=== PATIENT | female | born 1965 | race Caucasian/White ===

== ENCOUNTER → 2020-04-01 16:28 | Outpatient (CLI) | payer OTHER, SELFPAY ==
[2020-04-01 17:18] LABS: Add Manual Diff / Slide Review NO; Basophils Absolute Auto 100 /uL (0-100); Basophils Percent Auto 0.7 % (0-2); Eosinophils Absolute Auto 200 /uL (0-450); Eosinophils Percent Auto 2.3 % (2-4); Hematocrit 34.2 % (36-46); Hemoglobin 11.8 g/dL (12.0-16.0); Lymphocytes Absolute Auto 2900 /uL (1100-4500); Mean Corpuscular HGB Conc 34.6 % (30-36); Mean Corpuscular Hemoglobin 31.9 PG (26-34); Mean Corpuscular Volume 92.2 fL (80-100); Monocytes Absolute Auto 600 /uL (0-900); Monocytes Percent Auto 7.4 % (3-14); Neutrophils Absolute Auto 4100 /uL (1500-7000); Neutrophils Percent Auto 52.6 % (50-75); Platelet Count 203 X10^3/uL (150-400); Red Blood Cell Count 3.71 X10^6/uL (4.0-5.2); Red Cell Distribution Width 13.6 % (11.6-14.8); White Blood Cell Count 7.7 X10^3/uL (4.5-11.0)
[2020-04-01 17:23] LABS: Hemoglobin A1C% w Est Avg Glu 5.4 % (4.0-6.0)
[2020-04-01 17:40] LABS: Alanine Aminotransferase 15 IU/L (<35); Albumin 4.4 g/dL (3.5-5.0); Albumin Globulin Ratio 1.6 (1.0-2.8); Alkaline Phosphatase 51 U/L (38-126); Aspartate Aminotransferase 28 IU/L (14-36); BUN Creatinine Ratio 23.6 (6-22); Bilirubin Total 0.4 mg/dL (0.2-1.3); Blood Urea Nitrogen 21 mg/dL (7-17); Calcium 9.5 mg/dL (8.4-10.2); Carbon Dioxide 30 mmol/L (22-32); Chloride 103 mmol/L (98-107); Estimated Glomerular Filt Rate > 60.0 mL/min (>60); Globulin 2.8 g/dL (1.7-4.1); Glucose 118 mg/dL (70-100); HEMOLYSIS < 15 (0-50); Potassium 3.7 mmol/L (3.4-5.1); Sodium 139 mmol/L (137-145); Total Protein 7.2 g/dL (6.3-8.2)
[2020-04-01 18:10] LABS: Thyroid Stimulating Hormone 2.19 uIU/mL (0.47-4.68)
[2020-04-02 09:48] LABS: Cholesterol 194 mg/dL (140-199); HDL Cholesterol 48 mg/dL (40-60); LDL Cholesterol Calculated 109 mg/dL (<100); Triglycerides 184 mg/dL (35-150)
[2020-04-06 21:07] LABS: Metanephrine,Plasma 10 pg/mL (0-62)
== END ==
DX: Z13.220 Encounter for screening for lipoid disorders (principal); Z13.1 Encounter for screening for diabetes mellitus; R23.2 Flushing
CPT/HCPCS: 36415; 80053; 80061; 82384; 83036; 83835; 84443; 85025

== ENCOUNTER → 2020-04-03 08:10 | Outpatient (CLI) | payer OTHER, SELFPAY ==
[2020-04-08 16:14] LABS: Creatinine, 24 Urine 904 mg/24 hr (800-1800); Creatinine,Urine 58.3 mg/dL (Not Estab.); Dopamine, Ur 24hr 183 ug/24 hr (0-510); Epinephrine, U 24hr 8 ug/24 hr (0-20); Metanephrine, Urine 90 ug/L (Undefined); Norepinephrine Ur 24hr 22 ug/24 hr (0-135); Normetanephrine Ur 24hr 246 ug/24 hr (82-500); Normetanephrine, Ur 159 ug/L (Undefined)
== END ==
PROVIDERS: Referring Provider Internal Medicine; Visit Provider Internal Medicine
DX: Z13.1 Encounter for screening for diabetes mellitus (principal); Z13.220 Encounter for screening for lipoid disorders; R23.2 Flushing
CPT/HCPCS: 82384; 82570; 83835

== ENCOUNTER 2020-04-30 11:27 | Emergency (ER) | payer OTHER, SELFPAY ==
[2020-04-30 11:38] VITALS: BP 174/70; PULSE 71; RESP 16; TEMP 36.7; O2SAT 100; BMI 27.8
--- NOTE | 2020-04-30 11:48 | ED_ITS ---
HPI - Headache <SIRI Abdullahi - Last Filed: 04/30/20 13:47> General Chief Complaint: Headache Stated Complaint: Headaches and Diarhea Time Seen by Provider: 04/30/20 11:29 Mode of arrival: Family Vehicle Limitations: no limitations History of Present Illness HPI Narrative: 54yo female presents to the emergency department complaining of a headache. She states she had a headache 2 weeks ago for approximately a week, it resolved after a week. Following a week of relief, her headache returned on Sunday. She states she was seen in the walk-in clinic yesterday and was given Toradol which helped relieve the pain. She has taken Tylenol which also does the pain but does not completely relieve it. Patient states the pain is located on the right occipital area of her head. She states it is a dull aching 6/10. Patient denies any aggravating symptoms. She states the headache came on gradually and is usually worse in the morning when she is fasting. She has done intermittent fasting since November, she is unsure if the fasting is related to her headaches. Patient denies any history of headaches or migraines. She denies taking any blood thinners. Patient reports she has started to take low-dose estrogen approximately 3 weeks ago for menopausal hot flashes. Patient reports yesterday she had an episode of diarrhea which is unusual for her, she is usually constipated. Patient denies any other symptoms such as chest pain, shortness of breath, dizziness, abdominal pain, vomiting, light sensitivity, blurry vision, double vision, neck pain, or any other concerns. Related Data Home Medications Medication Instructions Recorded Confirmed docusate sodium PO 03/29/19 04/29/20 conjugated estrogens 0.3 mg tablet 0.3 mg PO DAILY 04/29/20 04/29/20 polyethylene glycol 3350 17 17 gram PO DAILY 04/29/20 04/29/20 gram/dose oral powder progesterone micronized 100 mg 100 mg PO QAM 04/29/20 04/29/20 capsule Previous Rx's Medication Instructions Recorded metoclopramide HCl [Reglan] 10 mg PO Q6H PRN #7 tab 04/30/20 Allergies Allergy/AdvReac Type Severity Reaction Status Date / Time No Known Drug Allergies Allergy Verified 04/30/20 11:41 Review of Systems <SIRI Abdullahi - Last Filed: 04/30/20 13:47> Review of Systems Narrative: REVIEW OF SYSTEMS: GENERAL: Denies fever or chills. HENT: Reports headache, see HPI. EYES: No loss of vision, double vision, eye pain, or irritation. CARDIOVASCULAR: No chest pain or syncope. RESPIRATORY: No shortness of breath or cough. GASTROINTESTINAL: Reports episode of diarrhea, see HPI. GENITOURINARY: No flank pain or dysuria. MUSCULOSKELETAL: No pain, weakness, or deformities. INTEGUMENTARY: No rash, lesions, or pruritus. NEURO: No numbness, tingling, memory loss, or confusion. PSYCH: No behavior or mood changes. Patient History <SIRI Abdullahi - Last Filed: 04/30/20 13:47> Medical History No significant medical problems (Acute) Social History Smoking Status: Never smoker Smoking Status: Never smoker alcohol intake frequency: 0-2 drinks per day Substance Use Type: does not use Exam <SIRI Abdullahi - Last Filed: 04/30/20 13:47> Initial Vital Signs Initial Vital Signs: Vital Signs Temperature 98.1 F 04/30/20 11:38 Pulse Rate 71 04/30/20 11:38 Respiratory Rate 16 04/30/20 11:38 Blood Pressure 174/70 H 04/30/20 11:38 Pulse Oximetry 100 04/30/20 11:38 PHYSICAL EXAMINATION: GENERAL: Well groomed, alert, and cooperative. Answers questions promptly and appropriately. Vital signs noted. HENT: Normocephalic. Ear canals patent. Oral mucosa is pink and moist. EYES: PERRLA, EOMIs, conjunctiva pink, sclera white, no periorbital swelling. NECK: Full ROM, no midline or spinal tenderness. CARDIOVASCULAR: S1 and S2 sounds normal. Regular rate and rhythm, no murmurs, clicks, or bruits. RESPIRATORY: Normal respiratory rate, trachea midline, airway patent. No stridor, nasal flaring or accessory muscle use. Lungs are clear in all gonzalez without wheeze, rhonchi, or crackles. MUSCULOSKELETAL: Normal gait and coordination. Equal tone and mass bilaterally. Equal strength bilaterally to upper and lower extremities. No spinal tenderness. EXTREMITIES: CMS intact. Moves all extremities. SKIN: Warm, dry, soft, appropriate color for ethnicity. No lesions, rashes, or wounds to visualized areas. NEURO: Alert and Oriented X 3. GCS: 15. Good coordination. No ataxia, or sensory deficits, or cognitive issues. No light sensitivity observed. Cranial Nerves: II: Visual gonzalez grossly intact. III & IV & : EOMIs V: Able to open and close jaw. VII: Facial movements symetrical. Able to close eyelids tightly. VIII: Hearing grossly intact, adequate balance. X: Uvula pronation intact. XI: Patient is able to shrug shoulders. XII: Patient is able to stick out tongue and move it side to side. PSYCH: Appropriate affect and mood. <Claudia Ren MD - Last Filed: 04/30/20 17:50> Initial Vital Signs Initial Vital Signs: Vital Signs Temperature 98.1 F 04/30/20 11:38 Pulse Rate 71 04/30/20 11:38 Respiratory Rate 16 04/30/20 11:38 Blood Pressure 174/70 H 04/30/20 11:38 Pulse Oximetry 100 04/30/20 11:38 Course <SIRI Abdullahi - Last Filed: 04/30/20 13:47> Course Course Narrative: 1241: Patient reported feeling much better. Patient states headache has almost completely resolved, reports pain as a 1/10. Updated on laboratory and CT findings. Orders Ordered: ED Orders 04/30/20 11:47 Complete Blood Count AUTO DIFF Stat Comprehensive Metabolic Panel Stat 04/30/20 12:00 CT head/brain wo con Stat Discontinued Medications Diphenhydramine HCl (Benadryl) 25 mg IV NOW ONE Stop: 04/30/20 11:46 Last Admin: 04/30/20 12:15 Dose: 25 mg Documented by: RJ Sodium Chloride (Normal Saline 0.9%) 1,000 mls @ 1,000 mls/hr IV BOLUS ONE Stop: 04/30/20 12:44 Last Infusion: 04/30/20 13:30 Dose: 0 mls/hr Documented by: Admin: 04/30/20 12:14 Dose: 1,000 mls/hr Documented by: RJ Ketorolac Tromethamine (Toradol) 30 mg IV NOW ONE Stop: 04/30/20 11:46 Last Admin: 04/30/20 12:17 Dose: 30 mg Documented by: RJ Metoclopramide HCl (Reglan) 10 mg IV NOW ONE Stop: 04/30/20 11:46 Last Admin: 04/30/20 12:20 Dose: 10 mg Documented by: RJ Consultations Consultation #1: Patient staffed with Dr. Ren, discussed symptoms, tests, test results, and plan of care. Vital Signs Vital signs: Vital Signs - 8 hr 04/30/20 11:38 04/30/20 13:31 Temperature 98.1 F Pulse Rate 71 54 L Respiratory Rate 16 18 Blood Pressure 174/70 H 121/58 L Pulse Oximetry 100 98 <Claudia Ren MD - Last Filed: 04/30/20 17:50> Orders Ordered: ED Orders 04/30/20 11:47 Complete Blood Count AUTO DIFF Stat Comprehensive Metabolic Panel Stat 04/30/20 12:00 CT head/brain wo con Stat Discontinued Medications Diphenhydramine HCl (Benadryl) 25 mg IV NOW ONE Stop: 04/30/20 11:46 Last Admin: 04/30/20 12:15 Dose: 25 mg Documented by: RJ Sodium Chloride (Normal Saline 0.9%) 1,000 mls @ 1,000 mls/hr IV BOLUS ONE Stop: 04/30/20 12:44 Last Infusion: 04/30/20 13:30 Dose: 0 mls/hr Documented by: Admin: 04/30/20 12:14 Dose: 1,000 mls/hr Documented by: RJ Ketorolac Tromethamine (Toradol) 30 mg IV NOW ONE Stop: 04/30/20 11:46 Last Admin: 04/30/20 12:17 Dose: 30 mg Documented by: RJ Metoclopramide HCl (Reglan) 10 mg IV NOW ONE Stop: 04/30/20 11:46 Last Admin: 04/30/20 12:20 Dose: 10 mg Documented by: RJ Vital Signs Vital signs: Vital Signs - 8 hr 04/30/20 11:38 04/30/20 13:31 Temperature 98.1 F Pulse Rate 71 54 L Respiratory Rate 16 18 Blood Pressure 174/70 H 121/58 L Pulse Oximetry 100 98 MDM - Headache <ENRRIQUE AbdullahiP - Last Filed: 04/30/20 13:47> Medical Records Attestation: I reviewed the patient's medical records. Lab Data Attestation: I reviewed the patient's lab results. Result diagrams: 04/30/20 11:47 04/30/20 11:47 Labs: Lab Results 04/30/20 04/30/20 Range/Units 11:47 11:47 WBC 6.9 (4.5-11.0) X10^3/uL RBC 3.73 L (4.0-5.2) X10^6/uL Hgb 11.8 L (12.0-16.0) g/dL Hct 34.6 L (36-46) % MCV 92.7 (80-100) fL MCH 31.8 (26-34) PG MCHC 34.3 (30-36) % RDW 13.6 (11.6-14.8) % Plt Count 202 (150-400) X10^3/uL Neut % (Auto) 55.4 (50-75) % Lymph % (Auto) 35.8 (25-40) % [place] % (Auto) 6.5 (3-14) % Eos % (Auto) 1.5 L (2-4) % Baso % (Auto) 0.8 (0-2) % Neut # (Auto) 3800 (5811-7919) /uL Lymph # (Auto) 2500 (4300-1673) /uL [place] # (Auto) 400 (0-900) /uL Eos # (Auto) 100 (0-450) /uL Baso # (Auto) 100 (0-100) /uL Sodium 140 (137-145) mmol/L Potassium 4.2 (3.4-5.1) mmol/L Chloride 107 (98-107) mmol/L Carbon Dioxide 25 (22-32) mmol/L BUN 13 (7-17) mg/dL Creatinine 0.78 (0.52-1.04) mg/dL Estimated GFR > 60.0 (>60) mL/min BUN/Creatinine Ratio 16.7 (6-22) Glucose 79 (70-100) mg/dL Calcium 9.6 (8.4-10.2) mg/dL Total Bilirubin 0.3 (0.2-1.3) mg/dL AST 35 (14-36) IU/L ALT 20 (<35) IU/L Alkaline Phosphatase 52 (38-126) U/L Total Protein 7.0 (6.3-8.2) g/dL Albumin 4.6 (3.5-5.0) g/dL Globulin 2.4 (1.7-4.1) g/dL Albumin/Globulin Ratio 1.9 (1.0-2.8) Imaging Data CT scan - head: Radiologist's Impression: [address] [address] [address] Scan Report Signed Patient: Corie Augustin AMR#: [id number] : 1965Acct:[id number] Age/Sex: 54 / FDate of Service: 04/30/20 Loc: ED Accession Number: [id number] Procedure: CT head/brain wo con Ordering Provider: Nely Gutierrez PROCEDURE: CT HEAD/BRAIN WO CON INDICATIONS: Headache x 2 weeks, started taking estrogen TECHNIQUE: Noncontrast 4.5 mm thick angled axial sections acquired from the foramen magnum to the vertex, with coronal and sagittal reformats. For radiation dose reduction, the following was used: automated exposure control, adjustment of mA and/or kV according to patient size. COMPARISON: None. FINDINGS: Image quality: Excellent. CSF spaces: Basal cisterns are patent. No extra-axial fluid collections. Ventricles are normal in size and shape. Brain: No midline shift. No intracranial masses or hemorrhage. Vidales-white matter interface is normal. Skull and face: Calvarium and visualized facial bones are intact, without suspicious lesions. Sinuses: Visualized sinuses and mastoids are clear. IMPRESSION: No acute intracranial hemorrhage is seen. No acute intracranial process is seen. Dictated by: Job Hannah M.D. on 04/30/2020 at 11:10 Approved by: Job Hannah M.D. on 04/30/2020 at 11:15 MDM Narrative Medical decision making narrative: 54-year-old female presenting to the emergency department for new onset headaches the past 3 weeks. I am unsure the exact cause of the headache however, her intermittent fasting and new low-dose estrogen pills that she started 3 weeks ago may contribute to her symptoms. Less likely stroke due to lack of neurological symptoms, lack of risk factors, CT without findings of bleeding. Less likely to tumor as head CT and neuro exam is non-remarkable. Additionally, patient's headache significantly improved with fluids, Toradol, Reglan, and Benadryl. Discussed with patient importance of follow-up especially given the recent addition of estrogen pills that she has been taking. We discussed keeping a headache diary and avoiding intermittent fasting for the next few days to see if symptoms are alleviated. Strict ED return precautions were given for new or worsening symptoms. Patient agreed to plan of care verbalized understanding. <Claudia Ren MD - Last Filed: 04/30/20 17:50> Lab Data Labs: Lab Results 04/30/20 04/30/20 Range/Units 11:47 11:47 WBC 6.9 (4.5-11.0) X10^3/uL RBC 3.73 L (4.0-5.2) X10^6/uL Hgb 11.8 L (12.0-16.0) g/dL Hct 34.6 L (36-46) % MCV 92.7 (80-100) fL MCH 31.8 (26-34) PG MCHC 34.3 (30-36) % RDW 13.6 (11.6-14.8) % Plt Count 202 (150-400) X10^3/uL Neut % (Auto) 55.4 (50-75) % Lymph % (Auto) 35.8 (25-40) % [place] % (Auto) 6.5 (3-14) % Eos % (Auto) 1.5 L (2-4) % Baso % (Auto) 0.8 (0-2) % Neut # (Auto) 3800 (8903-8925) /uL Lymph # (Auto) 2500 (3590-0556) /uL Independence # (Auto) 400 (0-900) /uL Eos # (Auto) 100 (0-450) /uL Baso # (Auto) 100 (0-100) /uL Sodium 140 (137-145) mmol/L Potassium 4.2 (3.4-5.1) mmol/L Chloride 107 (98-107) mmol/L Carbon Dioxide 25 (22-32) mmol/L BUN 13 (7-17) mg/dL Creatinine 0.78 (0.52-1.04) mg/dL Estimated GFR > 60.0 (>60) mL/min BUN/Creatinine Ratio 16.7 (6-22) Glucose 79 (70-100) mg/dL Calcium 9.6 (8.4-10.2) mg/dL Total Bilirubin 0.3 (0.2-1.3) mg/dL AST 35 (14-36) IU/L ALT 20 (<35) IU/L Alkaline Phosphatase 52 (38-126) U/L Total Protein 7.0 (6.3-8.2) g/dL Albumin 4.6 (3.5-5.0) g/dL Globulin 2.4 (1.7-4.1) g/dL Albumin/Globulin Ratio 1.9 (1.0-2.8) Discharge Plan Departure Patient Disposition: Home Clinical Impression: Headache Qualifiers: Headache type: other headache syndrome Qualified Code(s): G44.89 - Other headache syndrome Discharge Date/Time: 04/30/20 13:33 Instructions: DI for Headache Activity Restrictions/Additional Instructions: Thank you for entrusting me with your care today. As discussed, your head CT and laboratory work are non-remarkable. You have minor anemia which we discussed that you have had in the past. I am unsure the exact cause of your headache, it may be due to intermittent fasting and or your new estrogen medication. I have given you a prescription for metoclopramide, take this with 25 mg of [id number] Benadryl, and Tylenol or ibuprofen later this evening and/or if your headache persists. The Benadryl can make you sleepy, do not drive with this medication. Your prescription for metoclopramide [facility] to [facility] in [place]. Follow-up with your primary care provider in the next 1-2 weeks for further evaluation and discussion of your symptoms. It may be helpful to keep a headache diary. Return emergency department for any new or worsening symptoms such as facial droop, vision loss, blurry vision, limb weakness, chest pain, shortness of amber th, or any other concerns. Prescriptions: New metoclopramide HCl [Reglan] 10 mg tablet 10 mg PO Q6H PRN (Reason: nausea and vomiting) Qty: 7 RF: 0 No Action docusate sodium PO RF: 0 polyethylene glycol 3350 [Miralax] 17 gram/dose powder 17 gram PO DAILY RF: 0 conjugated estrogens 0.3 mg tablet 0.3 mg PO DAILY RF: 0 progesterone micronized 100 mg capsule 100 mg PO QAM RF: 0 Referrals: Bryan Pineda MD [Primary Care Provider] - <Claudia Ren MD - Last Filed: 04/30/20 17:50> Cosign ED Attending Cosignature Attestation: I was immediately available in the department for consultation throughout this patient's visit. I agree with documentation as above. Claudia Ren MD
[2020-04-30 11:56] LABS: Add Manual Diff / Slide Review NO; Basophils Absolute Auto 100 /uL (0-100); Basophils Percent Auto 0.8 % (0-2); Eosinophils Absolute Auto 100 /uL (0-450); Eosinophils Percent Auto 1.5 % (2-4); Hematocrit 34.6 % (36-46); Hemoglobin 11.8 g/dL (12.0-16.0); Lymphocytes Absolute Auto 2500 /uL (1100-4500); Lymphocytes Percent Auto 35.8 % (25-40); Mean Corpuscular HGB Conc 34.3 % (30-36); Mean Corpuscular Hemoglobin 31.8 PG (26-34); Mean Corpuscular Volume 92.7 fL (80-100); Monocytes Absolute Auto 400 /uL (0-900); Monocytes Percent Auto 6.5 % (3-14); Neutrophils Absolute Auto 3800 /uL (1500-7000); Neutrophils Percent Auto 55.4 % (50-75); Platelet Count 202 X10^3/uL (150-400); Red Blood Cell Count 3.73 X10^6/uL (4.0-5.2); Red Cell Distribution Width 13.6 % (11.6-14.8); White Blood Cell Count 6.9 X10^3/uL (4.5-11.0)
--- NOTE | 2020-04-30 12:00 | DI.CT.S_ITS ---
PROCEDURE: CT HEAD/BRAIN WO CON INDICATIONS: Headache x 2 weeks, started taking estrogen TECHNIQUE: Noncontrast 4.5 mm thick angled axial sections acquired from the foramen magnum to the vertex, with coronal and sagittal reformats. For radiation dose reduction, the following was used: automated exposure control, adjustment of mA and/or kV according to patient size. COMPARISON: None. FINDINGS: Image quality: Excellent. CSF spaces: Basal cisterns are patent. No extra-axial fluid collections. Ventricles are normal in size and shape. Brain: No midline shift. No intracranial masses or hemorrhage. Vidales-white matter interface is normal. Skull and face: Calvarium and visualized facial bones are intact, without suspicious lesions. Sinuses: Visualized sinuses and mastoids are clear. IMPRESSION: No acute intracranial hemorrhage is seen. No acute intracranial process is seen. Dictated by: Job Hannah M.D. on 04/30/2020 at 11:10 Approved by: Job Hannah M.D. on 04/30/2020 at 11:15
[2020-04-30 12:09] LABS: Alanine Aminotransferase 20 IU/L (<35); Albumin 4.6 g/dL (3.5-5.0); Albumin Globulin Ratio 1.9 (1.0-2.8); Alkaline Phosphatase 52 U/L (38-126); Aspartate Aminotransferase 35 IU/L (14-36); BUN Creatinine Ratio 16.7 (6-22); Bilirubin Total 0.3 mg/dL (0.2-1.3); Blood Urea Nitrogen 13 mg/dL (7-17); Calcium 9.6 mg/dL (8.4-10.2); Carbon Dioxide 25 mmol/L (22-32); Chloride 107 mmol/L (98-107); Estimated Glomerular Filt Rate > 60.0 mL/min (>60); Globulin 2.4 g/dL (1.7-4.1); Glucose 79 mg/dL (70-100); HEMOLYSIS < 15 (0-50); Potassium 4.2 mmol/L (3.4-5.1); Sodium 140 mmol/L (137-145)
[2020-04-30] MEDS: SODIUM CHLORIDE 0.9% 1,000 ML 1000 ML IV (12:14)
[2020-04-30] MEDS: diphenhydrAMINE 50 MG/ML VIAL 25 MG IV (12:15)
[2020-04-30] MEDS: KETOROLAC 60 MG/2 ML VIAL 30 MG IV (12:17)
[2020-04-30] MEDS: METOCLOPRAMIDE 10 MG/2 ML INJ IV (12:20)
[2020-04-30 13:31] VITALS: BP 121/58; PULSE 54; RESP 18; O2SAT 98
== END 2020-04-30 13:33 | disposition home or self-care (01) ==
PROVIDERS: Emergency Provider Nurse Practitioner; PCP Internal Medicine Clinical Cardiac Electrophysiology
DX: G44.89 Other headache syndrome (principal); R19.7 Diarrhea, unspecified
CPT/HCPCS: 36415; 70450; 80053; 85025; 96361; 96374; 96375; 99284; J1200; J1885; J2765

== ENCOUNTER → 2020-11-15 16:19 | Outpatient (CLI) | payer OTHER, SELFPAY | PROVIDERS: PCP Family Medicine; Visit Provider Physician Assistant | DX: N34.3 Urethral syndrome, unspecified (principal) | CPT/HCPCS: 87086 ==